=== PATIENT | female | born 1935 | race Caucasian/White ===

== ENCOUNTER 2017-08-06 21:57 | Emergency (ER) | payer MEDICARE, OTHER ==
[2017-08-06] MEDS: cloNIDine HCL 0.2 MG TAB PO (22:20)
== END 2017-08-06 23:53 | disposition home or self-care (01) ==
LOC: PHED 21:57
DX: I10 Essential (primary) hypertension (principal); R51 Headache; Z88.2 Allergy status to sulfonamides
CPT/HCPCS: 99283

== ENCOUNTER 2017-11-12 10:21 | Inpatient (IN) ==
[2017-11-12] MEDS ORDERED: Heparin 10,000 UNITS/10 ML Vial (for IV use) IV.PUSH STA (10:53)
--- NOTE | 2017-11-12 10:59 | ED ---
HPI General Chief complaint: Chest Pain Stated complaint: Chest pain x last night Time Seen by Provider: 11/12/17 10:52 Source: patient Mode of arrival: ambulatory Limitations: no limitations History of Present Illness HPI narrative: 82yo F with PMH of HTN presents to the ED with c/o chest pain that started at 9am today. Had some last night but worst today. Pain is achy and initially radiating to bilateral arms but now is going straight to her back from midsternal region. She already took aspirin. Related Data Home Medications Medication Instructions Recorded Confirmed amlodipine 10 mg PO DAILY 11/12/17 11/12/17 losartan-hydrochlorothiazide 1 tab PO DAILY 11/12/17 11/12/17 Allergies Allergy/AdvReac Type Severity Reaction Status Date / Time Sulfa (Sulfonamide Allergy Severe RASH Verified 08/06/17 22:03 Antibiotics) Review of Systems ROS: all other systems reviewed are negative [facility] Medical History Medical History Hypertension (Acute) Surgical History Surgical History No history of previous surgery (Acute) Social History Social History Substance History: No History of Abuse Second Hand Smoke Exposure: No Smoking Status: Never smoker How Often Do You Have a Drink Containing Alcohol: Monthly or less Recent Travel in [facility] within the Last 8 Weeks: No Recent Out of Country Travel within the Last 8 Weeks: No Exam Narrative Exam Narrative: GENERAL: 82yo F in moderate distress. SKIN: Focused skin assessment warm/dry. HEAD: Atraumatic. Normocephalic. EYES: Pupils equal and round. No scleral icterus. No injection or drainage. ENT: No nasal bleeding or discharge. Mucous membranes pink and moist. NECK: Trachea midline. No JVD. CARDIOVASCULAR: Regular rate and rhythm. No murmur appreciated. RESPIRATORY: No accessory muscle use. Clear to auscultation. Breath sounds equal bilaterally. GASTROINTESTINAL: Abdomen soft, non-tender, nondistended. MUSCULOSKELETAL: No obvious deformities. No clubbing. No cyanosis. No edema. NEUROLOGICAL: Awake and alert. No obvious cranial nerve deficits. Motor grossly within normal limits. Normal speech. PSYCHIATRIC: Appropriate mood and affect; insight and judgment normal. Course Initial Documented Vital Signs Temperature 97.5 F L 11/12/17 10:29 Pulse Rate 108 H 11/12/17 10:29 Respiratory Rate 20 11/12/17 10:29 Blood Pressure 180/86 H 11/12/17 10:29 Pulse Oximetry 99 11/12/17 10:29 Last Documented Vital Signs Temperature 97.5 F L 11/12/17 10:29 Pulse Rate 106 H 11/12/17 11:00 Respiratory Rate 18 11/12/17 11:00 Blood Pressure 84/45 L 11/12/17 11:00 Pulse Oximetry 95 11/12/17 11:00 Critical Care Time Critical Care Time: Yes Total Critical Care Time: 35 Attestation: Aggregate critical care time was 35 minutes. Time to perform other separately billable procedures was not included in the critical care time. My time did not include minutes spent treating any other patients simultaneously or on activities that did not directly contribute to the patient's treatment. The services I provided to this patient were to treat and/or prevent clinically significant deterioration that could result in: cardiovascular collapse or . I provided critical care services requiring my management, as noted below: Chart data review, documentation time, medication orders and management, vital sign assessments/reviewing monitor data, ordering and reviewing lab tests, ordering and interpreting/reviewing x-rays and diagnostic studies, care of the patient and discussion of the patient with the admitting physicians. Medical Decision Making MDM Narrative Medical decision making narrative: 82yo F with HTN here with midsternal chest pain since 9am. EKG showed ST elevation in V1 and V2 with diffuse ST depression. The elevation is only about 1mm but is horizontal with diffuse ST depression so it is worrisome and I discussed with road supervisor Dr. Pedraza and he said he would call a STEMI and STEMI was called. Pt given heparin and 1 sublingual nitro which relieved her chest pain. Labs reviewed, no leukocytosis. H/H normal. BMP unremarkable. Troponin elevated at 1.11. CXR showed some scarring of left base. Normal heart size. 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 Differential Diagnosis Differential Diagnosis: STEMI vs. nonstemi Lab Data Result diagrams: 11/12/17 10:51 11/12/17 10:51 Lab Results 11/12/17 11/12/17 11/12/17 Range/Units 10:51 10:51 10:51 CBC w Diff Auto diff final WBC 6.3 (4.0-11.0) th/mm3 RBC 4.38 (4.00-5.30) mil/mm3 Hgb 14.0 (11.6-15.3) gm/dL Hct 41.8 (35.0-46.0) % MCV 95.4 (80.0-100.0) fL MCH 32.0 (27.0-34.0) pg MCHC 33.6 (32.0-36.0) % RDW 12.9 (11.6-17.2) % Plt Count 178 (150-450) th/mm3 MPV 8.1 (7.0-11.0) fL Neut % (Auto) 55.1 (16.0-70.0) % Lymph % (Auto) 33.1 (9.0-44.0) % Mckenzie % (Auto) 9.0 H (0.0-8.0) % Eos % (Auto) 1.6 (0.0-4.0) % Baso % (Auto) 1.2 (0.0-2.0) % Neut # (Auto) 3.4 (1.8-7.7) th/mm3 Lymph # (Auto) 2.1 (1.0-4.8) th/mm3 Mckenzie # (Auto) 0.6 (0.0-0.9) th/mm3 Eos # (Auto) 0.1 (0.0-0.4) th/mm3 Baso # (Auto) 0.1 (0.0-0.2) th/mm3 WBC Differential . Differential Comment . PT 10.1 (9.8-11.6) sec INR 1.0 Ratio APTT 24.9 (24.3-30.1) sec Sodium 140 (136-145) meq/L Potassium 3.7 (3.5-5.1) meq/L Chloride 105 (98-107) meq/L Carbon Dioxide 27.0 (21.0-32.0) meq/L Anion Gap 8 (5-15) meq/L BUN 18 (7-18) mg/dL Creatinine 0.93 (0.50-1.00) mg/dL Estimated GFR 58 L (>89) mL/min Random Glucose 113 H (74-106) mg/dL Calcium 9.4 (8.5-10.1) mg/dL Magnesium 1.8 (1.5-2.5) mg/dL Total Creatine Kinase 84 (26-192) U/L Troponin I 1.11 H* (0.02-0.05) ng/mL Blood Type Antibody Screen 11/12/17 Range/Units 11:58 CBC w Diff WBC (4.0-11.0) th/mm3 RBC (4.00-5.30) mil/mm3 Hgb (11.6-15.3) gm/dL Hct (35.0-46.0) % MCV (80.0-100.0) fL MCH (27.0-34.0) pg MCHC (32.0-36.0) % RDW (11.6-17.2) % Plt Count (150-450) th/mm3 MPV (7.0-11.0) fL Neut % (Auto) (16.0-70.0) % Lymph % (Auto) (9.0-44.0) % Mckenzie % (Auto) (0.0-8.0) % Eos % (Auto) (0.0-4.0) % Baso % (Auto) (0.0-2.0) % Neut # (Auto) (1.8-7.7) th/mm3 Lymph # (Auto) (1.0-4.8) th/mm3 Mckenzie # (Auto) (0.0-0.9) th/mm3 Eos # (Auto) (0.0-0.4) th/mm3 Baso # (Auto) (0.0-0.2) th/mm3 WBC Differential Differential Comment PT (9.8-11.6) sec INR Ratio APTT (24.3-30.1) sec Sodium (136-145) meq/L Potassium (3.5-5.1) meq/L Chloride (98-107) meq/L Carbon Dioxide (21.0-32.0) meq/L Anion Gap (5-15) meq/L BUN (7-18) mg/dL Creatinine (0.50-1.00) mg/dL Estimated GFR (>89) mL/min Random Glucose (74-106) mg/dL Calcium (8.5-10.1) mg/dL Magnesium (1.5-2.5) mg/dL Total Creatine Kinase (26-192) U/L Troponin I (0.02-0.05) ng/mL Blood Type O Positive Antibody Screen Negative Imaging Data Radiologist's impression: Chest X-Ray 11/12/17 10:54 CONCLUSION: 1. [Except for some minimal lateral atelectasis or scarring in the left base, lungs are clear. 2. Heart size is normal. ECG Data EKG Prior to Arrival: No Attestation: I personally reviewed and interpreted this ECG as follows: Interpretation: Sinus tachycardia at 106bpm. LAD. ST elevation in V1, V2, aVR. Diffuse ST depression. Discharge Plan Discharge Disposition Patient Disposition: 30 Still Patient Discharge Details Diagnosis: ST elevation myocardial infarction (STEMI) Physicians Team ED Provider: Heavenly Rowe Primary Care Provider: Rafaela Page Attending Provider: Rahul Pedraza Other Providers: Yovani Klein Status ED Status: Discharged Discharge Information Discharge Date/Time: 11/12/17 11:13
[2017-11-12] MEDS ORDERED: Sod Chloride 0.9% Inj 1,000 ML IV.SIG SCH (11:00)
--- NOTE | 2017-11-12 11:11 | XR ---
EXAM DATE: 11/12/2017 11:05 AM EDT AGE/SEX: 82 years / Female INDICATIONS: Stemi alert. CLINICAL DATA: This is the patient's initial encounter. Patient reports that signs and symptoms have been present for 1 day and indicates a pain score of 6/10. MEDICAL/SURGICAL HISTORY: Hypertension. . COMPARISON: No prior exams available for comparison. FINDINGS: A single AP view of the chest demonstrates mild elevation of the right hemidiaphragm. Minimal atelect asis/scarring laterally in the left base. Lungs are otherwise clear. Heart size is normal. Some degen erative spurring of the dorsal spine. Osseous structures are otherwise intact. CONCLUSION: 1. [Except for some minimal lateral atelectasis or scarring in the left base, lungs are clear. 2. Heart size is normal. Electronically signed by: Rajesh Alvarez MD 11/12/2017 11:09 AM EDT
[2017-11-12 11:12] LABS: Baso # (Auto) 0.1 th/mm3 (0.0-0.2); Baso % (Auto) 1.2 % (0.0-2.0); Eos # (Auto) 0.1 th/mm3 (0.0-0.4); Eos % (Auto) 1.6 % (0.0-4.0); Hematocrit 41.8 % (35.0-46.0); Lymph # (Auto) 2.1 th/mm3 (1.0-4.8); Lymph % (Auto) 33.1 % (9.0-44.0); Mean Corpuscular HGB Conc 33.6 % (32.0-36.0); Mean Corpuscular Volume 95.4 fL (80.0-100.0); Mean Platelet Volume 8.1 fL (7.0-11.0); Mono # (Auto) 0.6 th/mm3 (0.0-0.9); Neut # (Auto) 3.4 th/mm3 (1.8-7.7); Neut % (Auto) 55.1 % (16.0-70.0); Platelet Count 178 th/mm3 (150-450); Red Blood Count 4.38 mil/mm3 (4.00-5.30); Red Cell Distribution Width 12.9 % (11.6-17.2); White Blood Count 6.3 th/mm3 (4.0-11.0)
[2017-11-12 11:20] LABS: Potassium 3.7 meq/L (3.5-5.1)
[2017-11-12 11:22] LABS: Calcium 9.4 mg/dL (8.5-10.1)
[2017-11-12 11:23] LABS: Magnesium 1.8 mg/dL (1.5-2.5)
[2017-11-12 11:24] LABS: Activated Partial Thrombo Time 24.9 sec (24.3-30.1); Prothrombin Time 10.1 sec (9.8-11.6)
[2017-11-12] MEDS ORDERED: Heparin/NS PF Inj 1,000 ML ONE (11:35)
[2017-11-12] MEDS ORDERED: fentaNYL Citrate Inj 100 MCG/2 ML Ampul ONE (11:35)
[2017-11-12] MEDS ORDERED: Heparin 10,000 UNITS/10 ML Vial (for IV use) ONE (11:36)
[2017-11-12 11:41] LABS: Troponin I 1.11 ng/mL (0.02-0.05)
--- NOTE | 2017-11-12 12:41 | ECG ---
Date Performed: 11/12/2017 Time Performed: 10:34:10 PTAGE: 82 years EKG: SINUS TACHYCARDIA PATTERN CONSISTENT WITH PULMONARY DISEASE INCOMPLETE RIGHT BUNDLE BRANCH BLOCK LEFT ANTERIOR FASCICULAR BLOCK SEPTAL MYOCARDIAL INFARCTION POSSIBLE ACUTE SC NO PREVIOUS TRACING DOCTOR: Olvin Ponce Interpretating Date/Time 11/12/2017 12:39:24
--- NOTE | 2017-11-12 12:51 | CATHPROC ---
[place] HIS Report Study Information Study Number Admission Scheduled Start Study Start [id number] Nov 12 2017 10:21AM 11/12/2017 Nov 12 2017 11:14AM [place] Service Cath Endovascular Study Admit Source Facility Department Emergency department [facility] Assistant Physician and Clinical Staff Initial Amadeo Dhaliwal Technical Developer Tamie Dunbar RN Technical Developer Edda Smart RN Other cathlab, cathlab Recorder Jesika Chavez,RT(R) TECH2 Scrub Freya Ray,FISHER TECH2 X-Ray Juan Antonio Dahl,RT(R) Procedures Performed Procedure Location (Site) Vessel Name Coronary Angiograms LCA Left Coronary Coronary Angiograms RCA Right Coronary Coronary Angiograms LAD Prox Left Coronary Drug Eluting Inflatio LAD Prox Left Coronary L Heart Cath PTCA LAD Prox Left Coronary PTCA ADD ON'S Wire insertion Fem Art (right) Femoral Art Equipment Time Automatic Screwmaker Description Size Mfg Part Number Used/Scraped WIRE, BALANCE MIDDLEWEIGHT [id number] 12:11 [employer] 190CM Used 190CM (LUIS ENRIQUE) *[id number] TRANSDUCER, TRUWAVE [id number] 11:15 GARCIA HUANG * Used W/STOCKCOCK *[id number] INTRODUCER SET, [id number] 11:56 [employer] FR 5 Used MICROPUNCTURE *[id number] *[id number] [id number] *[id number] 11:15 Speak With Me BLANKET,WARM AIR CCL * Used *[id number] 11:15 Speak With Me PACK, CCL CUSTOM * Used *[id number] 11:15 Speak With Me SUPPORT, ARTERIAL ADULT [id number] *[id number] Used [id number] 12:10 [employer] BALLOON, 3.0 X 10MM EUPHORA 10MM Used *[id number] BALLOON, 3.0 X 8MM NC [id number] 12:21 [employer] 8MM Used EUPHORA *[id number] 12:19 [employer] STENT, 3.0 12MM RENE 3.0 12MM Used *[id number] 12:07 [employer]IC/AVE EBU 3.5 Z2 GUIDE CATHETER FR 6 Used *[id number] 11:27 [employer]ets 30 DARLENE INDEFLATOR Used *[id number] 11:15 [employer] WIRE, EXCHANGE 260CM 3MMJ 260CM Used *[id number] 11:15 NAMIC MANIFOLD, 4 PORT * Used *[id number] 11:15 NYCOMED OMNIPAQUE, 350 MG, 150ML 150ML [id number] Used [id number] 11:56 [employer] SHEATH, FR5 TERUMO (10CM) FR 5 Used *[id number] SHEATH, FR6 TRANSRADIAL [id number] 11:15 TERUMO MEDICAL FR 6 Used SLENDER 10CM *[id number] Equipment Model, Serial, Lot Number and Expiration Data Description Model Number Serial Number Lot Number Expiration Date BALLOON, 3.0 X 10MM EUPHORA [id number] 01-24-2018 STENT, 3.0 12MM RENE [id number] 06-06-2019 History: Current Medications Medication Dosage/Unit Route Frequency Last Date/Time Taken ASA HEPARIN NTG SL History: Allergies Allergy Reaction Sulfa History: Risk Factors Hypertension Yes History: Symptoms/Diagnosis Selection Items Chest pain History: Other Current Smoker No Labs Hgb (g/dl) RBC (MIL/MM3) WBC (l/cumm) Platelets (thousands) 11.60-17.00 4.00-5.90 4.00-11.00 150.00-450.00 14.0 4.3 6.3 178 Glucose (mg/dl) BUN (mg/dl) 74.00-106.00 7.00-18.00 113 18 Medication Medication Total Dose (Bolus/Oral) Medication Total Dosage/Unit 1% XYLOCAINE 20 mL BRILLINTA 180 mg FENTANYL 25 mcg HEPARIN 4500 units NTG (IC) 200 mcg VERSED 0.5 mg Medications (Bolus/Oral) Medication Time Given Dosage/Unit Administered By Reason VERSED 11/12/2017 11:54:30 AM 0.5 mg Tamie Dunbar 0.5 mg VERSED given in lab by Tamie Dunbar, VIVI via Peripheral IV. Ordered by Amadeo Rivero FENTANYL 11/12/2017 11:55:28 AM 25 mcg Tamie Dunbar 25 mcg FENTANYL given in lab by Tamie Dunbar, RN in Left Antecubital via Peripheral IV. Ordered b y Amadeo Rivero 1% XYLOCAINE 11/12/2017 11:55:46 AM 20 mL Amadeo Rivero 20 mL 1% XYLOCAINE given in lab by Amadeo Rivero in Right Groin via Subcutaneous. HEPARIN 11/12/2017 12:05:41 PM 4500 units Edda Smart 4500 units HEPARIN given in lab by Edda Smart, RN in Left Antecubital via Peripheral IV. NTG (IC) 11/12/2017 12:23:21 PM 200 mcg Amadeo Rivero 200 mcg NTG (IC) given in lab by Amadeo Rivero via Intra-coronary. LCA BRILLINTA 11/12/2017 12:30:16 PM 180 mg Tamie Dunbar 180 mg BRILLINTA given in lab by Tamie Dunbar, VIVI in Per mouth via Oral. Ordered by Demian Rivero. Medication (Drip) Medication Time Given Dosage/Unit Concentration/Unit Diluent (ml) Solution IV Solutions 11/12/2017 11:49:33 AM 0 mL (IV) 1000 NaCl .9 Patient arrived on IV Solutions given by tegan cathóscar in Left Antecubital via Peripheral IV. Pump /Drip Flow = 20 ml/hr using NaCl .9. Initial Case Assessment Cardiovascular HR Rhythm NIBP Chest Pain 65 sr 143/78 0 Edema Present Skin color Skin None Normal Warm Dry Circulatory - Right Pulses Dorsalis Pedis Femoral 2 2 Scale (0,1,2,3,4,d) Circulatory - Left Pulses Dorsalis Pedis Femoral 2 2 Scale (0,1,2,3,4,d) Neurological State Oriented to time-place- Alert Moves all extremities person Respiration - General Respiration Rate SpO2 (%) (B/min) 18 98 Final Case Assessment Cardiovascular HR NIBP Chest Pain 74 117/61 0 Edema Present Skin color Skin None Normal Warm Dry Circulatory - Right Pulses Dorsalis Pedis Femoral 2 2 Scale (0,1,2,3,4,d) Circulatory - Left Pulses Dorsalis Pedis Femoral 2 2 Scale (0,1,2,3,4,d) Circulatory - Lower Extremities Color Lower Right Color Lower Left Normal Normal Neurological State Alert Respiration - General Respiration Rate SpO2 (%) O2 (lpm) (B/min) 16 96 2 Chronological Log Time Study Chronological Log 11:33:[address] from [facility] ED. 11:34:25 MD arrived. 11:40:34 Patient arrived via Bed. Vitals capture started with the following parameters, Patient=Adult, Interval=5 min, Initial Pr lvmtve=533 mmHg, 11:46:52 Deflation Rate=5 mmHg 11:47:58 HR=75 bpm, XBSY=189/78 mmhg, SpO2=98.0 %, Resp=18 B/min, Pain=0, Jeff=10, Kuhn=2 11:48:44 Patient Name, D.O.B, / Armband Verified By R.N. 11:48:47 Pre-op and post- op instructions given; patient acknowledges understanding of instructions. 11:48:49 Presedation assessment performed by Home Care Assistant RN. 11:48:57 Patient has been NPO for More than 6Hrs. 11:48:58 Skin Breakdown-none per patient 11:49:13 Patient Warmer Placed on the Table. 11:49:16 Disposable Defibrillator Pads Placed On Patient. 11:49:16 [employer] Prominences Protected 11:49:20 A # 20 IV was noted in the Antecubital (left). Grade = 0 Patient arrived on IV Solutions given by cathlab, cathlab in Left Antecubital via Peripheral IV . Pump/Drip Flow = 20 11:49:33 ml/hr using NaCl .9. 11:49:54 History and physical on the chart or being dictated. Assessment: Initial Case, HR=65 BPM, Rhythm=sr, TGCP=401/78 mmhg, Chest Pain=0, Edema=None, Col or=Normal, Skin = Warm, Dry Right Pulses: Cristobal Ped=2, Femoral=2 11:49:56 Left Pulses: Cristobal Ped=2, Femoral=2 Neurological: State=Alert, Ox3, GRANADOS Respiration: Resp=18 B/min, SpO2=98 % 11:50:47 Bilateral groins prepped with 2% chlorhexidine, and draped after a 3 minute waiting time. 11:52:05 Pressure channel 1 zeroed. 11:52:29 HR=89 bpm, UCHB=002/74 mmhg, SpO2=99.0 %, Resp=20 B/min, Pain=0, Jeff=10, Kuhn=2 Time Out. Correct patient, correct procedure, correct physician, labs, allergies, and equipment verified with medical laboratory technician 11:53:51 team present. Fire risk assesment completed (see hard stop sheet for coding). Time Out Conc urred by and individual staff in procedure. 11:54:21 Case Start 11:54:30 0.5 mg VERSED given in lab by Tamie Dunbar, VIVI via Peripheral IV. Ordered by Amadeo Rivero 25 mcg FENTANYL given in lab by Tamie Dunbar, RN in Left Antecubital via Peripheral IV. Ord ered by Mat, 11:55:28 Amadeo Salciod 11:55:41 Reference ECG taken 11::46 20 mL 1% XYLOCAINE given in lab by Amadeo Rivero in Right Groin via Subcutaneous. 11:56:00 Access site was Right Femoral Artery. Obtained with the assistance of the micropuncture kit 11:56:38 A SHEATH, FR5 TERUMO (10CM) FR 5 was advanced into the Fem Art (right) using the Percutaneo us technique. 11:57:30 HR=92 bpm, TVZS=683/70 mmhg, SpO2=98.0 %, Resp=19 B/min, Pain=0, Jeff=10, Kuhn=2 A JR 4.0 INFINITI CATHETER FR 5 was advanced over a wire. OMNIPAQUE, 350 MG, 150ML 150ML was us ed for 11:58:12 injections. 11:58:58 An injection in the Fem Art (right) was made through the SHEATH, FR5 TERUMO (10CM) FR 5. Recorded Pressure: LV, HR=90, Condition=Condition 1 12:00:22 (Left Ventricle) LV 129/-1/17 Recorded Pressure: LV, Ao, HR=91, Condition=Condition 1 12:00:34 (Left Ventricle) LV 130/-2/21, (Aorta) Ao 117/53/84 12:01:25 Lab sample sent down 12:01:51 The RCA was injected and visualized at various angles. OMNIPAQUE, 350 MG, 150ML 150ML used . 12:01:57 Catheter was removed A JL 3.5 INFINITI CATHETER FR 5 was advanced over a wire. OMNIPAQUE, 350 MG, 150ML 150ML was us ed for ::58 injections. 12:03:04 HR=86 bpm, YWXR=364/69 mmhg, SpO2=99.0 %, Resp=18 B/min, Pain=0, Jeff=10, Kuhn=2 12:04:32 The LCA was injected and visualized at various angles. OMNIPAQUE, 350 MG, 150ML 150ML used . 12:04:40 Catheter was removed 12:05:41 4500 units HEPARIN given in lab by Edda Smart, RN in Left Antecubital via Peripheral I V. A SHEATH, FR6 TRANSRADIAL SLENDER 10CM FR 6 was exchanged in the Fem Art (right). This was nece ssary in 12:07:03 order to accomodate a larger catheter. 12:07:21 OMNIPAQUE, 350 MG, 150ML 150ML and 30 DARLENE INDEFLATOR added. 12:07:55 HR=95 bpm, YECO=180/72 mmhg, SpO2=98.0 %, Resp=17 B/min, Pain=0, Jeff=10, Kuhn=2 A EBU 3.5 Z2 GUIDE CATHETER FR 6 was advanced over a wire. OMNIPAQUE, 350 MG, 150ML 150ML was u sed for 12:08:17 injections. 12:10:22 A WIRE, BALANCE MIDDLEWEIGHT 190CM (LUIS ENRIQUE) 190CM was inserted via Fem Art (right). 12:11:10 Activated Clotting Time Drawn 12:12:29 HR=90 bpm, TPAJ=808/71 mmhg, SpO2=98.0 %, Resp=19 B/min, Pain=0, Jeff=10, Kuhn=2 12:12:53 Interventional wire has crossed the lesion A BALLOON, 3.0 X 10MM EUPHORA 10MM was inserted over WIRE, BALANCE MIDDLEWEIGHT 190CM (LUIS ENRIQUE) 19 0CM 12:12:59 via the LAD Prox. A BALLOON, 3.0 X 10MM EUPHORA 10MM over a WIRE, BALANCE MIDDLEWEIGHT 190CM (LUIS ENRIQUE) 190CM in the LAD 12:14:34 Prox was inflated using a 30 DARLENE INDEFLATOR at 10 darlene for 15 sec. 12:15:48 Balloon Removed. 12:16:07 juan antonio relieved jesika 12:17:21 ACT (Normal Range 90-180) = 325 12:17:30 HR=93 bpm, IPCG=238/69 mmhg, SpO2=98.0 %, Resp=20 B/min A implantable was advanced through a EBU 3.5 Z2 GUIDE CATHETER FR 6 over a WIRE, BALANCE MIDDLE WEIGHT 12:18:20 190CM (LUIS ENRIQUE) 190CM. A STENT, 3.0 12MM RENE 3.0 12MM was deployed using a 30 DARLENE INDEFLATOR at 12 atmospheres for 30 seconds in 12:18:56 the LAD Prox. 12:19:51 The LAD Prox was injected and visualized at various angles. OMNIPAQUE, 350 MG, 150ML 150ML used. A BALLOON, 3.0 X 8MM NC EUPHORA 8MM was inserted over WIRE, BALANCE MIDDLEWEIGHT 190CM (LUIS ENRIQUE) 1 90CM 12:21:03 via the LAD Prox. A BALLOON, 3.0 X 8MM NC EUPHORA 8MM over a WIRE, BALANCE MIDDLEWEIGHT 190CM (LUIS ENRIQUE) 190CM in the LAD 12:21:37 Prox was inflated using a 30 DARLENE INDEFLATOR at 14 darlene for 12 sec. A BALLOON, 3.0 X 8MM NC EUPHORA 8MM over a WIRE, BALANCE MIDDLEWEIGHT 190CM (LUIS ENRIQUE) 190CM in the LAD 12:22:15 Prox was inflated using a 30 DARLENE INDEFLATOR at 16 darlene for 10 sec. 12:22:29 HR=94 bpm, GYGX=924/76 mmhg, SpO2=98.0 %, Resp=18 B/min 12:22:36 Balloon Removed. 12:23:21 200 mcg NTG (IC) given in lab by Amadeo Rivero via Intra-coronary. LCA 12:24:03 The LCA was injected and visualized at various angles. OMNIPAQUE, 350 MG, 150ML 150ML used . 12:26:24 Wire removed 12:27:09 A WIRE, EXCHANGE 260CM 3MMJ 260CM was inserted via Fem Art (right). 12:27:17 Wire and catheter removed 12:27:34 HR=97 bpm, OTMY=514/61 mmhg, SpO2=96.0 %, Resp=18 B/min Assessment: Final Case, HR=74 BPM, URBX=113/61 mmhg, Chest Pain=0, Edema=None, Color=Normal, Sk in = Warm, Dry Right Pulses: Cristobal Ped=2, Femoral=2 Left Pulses: Cristobal Ped=2, Femoral=2 12:29:29 Lower Right Extremities: Color=Normal Lower Left Extremities: Color=Normal Neurological: State=Alert Respiration: Resp=16 B/min, SpO2=96 %, O2=2 lpm 12:29:36 Case End (Physician broke scrub) 12:29:43 Vitals capture stopped. 12:30:16 180 mg BRILLINTA given in lab by Tamie Dunbar, VIVI in Per mouth via Oral. Ordered by Amadeo Galvez Bedside Report will be given. We were told by [facility]) room still being cleaned.. We are waiti ng for a phone call to 12:30:50 [facility] bed. Vitals capture started with the following parameters, Patient=Adult, Interval=5 min, Initial Pr ymnfda=280 mmHg, 12:38:37 Deflation Rate=5 mmHg 12:38:59 Sterile dressing applied to site 12:39:01 No case complications noted. 12:39:09 HR=74 bpm, JZDQ=973/73 mmhg, SpO2=98.0 % 12:40:07 Implantable Device card placed in patient's chart. 12:40:10 Defibrillator and ground pads removed. Skin intact. 12:40:16 A Left Heart Cath was performed. 12:46:10 bed arrived 12:47:13 Patient moved to [facility] End Study - Contrast Media Used In Study Contrast Total Opened (mL) Total Used (mL) Total Wasted (mL) Omnipaque 85 85 0 End Study - Radiation Exposure Fluoro Time (minutes) 5.0 End Study - Patient Disposition Complications Transferred To Interventional Outcome No Critical Care Bed successful
[2017-11-12] MEDS ORDERED: oxyCODONE/Acetaminophen 10/325 Tablet PO PRN (13:20)
[2017-11-12] MEDS ORDERED: Acetaminophen 325 MG Tablet PO PRN (13:20)
[2017-11-12] MEDS ORDERED: Morphine Inj 4 MG/ML Vial IV.PUSH PRN (13:20)
[2017-11-12] MEDS ORDERED: Misc Info for Pharmacy OTHER STA (13:20)
--- NOTE | 2017-11-12 13:38 | MH ---
cc: RiveroAmadeo grimm Tonya CHAVEZ DATE OF ADMISSION: 11/12/2017 CHIEF COMPLAINT: Chest pain. HISTORY OF CHIEF COMPLAINT: Umu Dickson is a pleasant 82-year-old female who presented to [facility] Emergency Room in [place] due to chest pain. She states that she had some last night, but it went away. This morning starting around 9 a.m., she started getting achy pain across her chest and down her bilateral arms. Because of this, she went to the Emergency Room. On arrival to the Emergency Room, she was found to have an EKG with ST elevations anteriorly, probably not fully qualifying for a STEMI, but obviously had significant EKG changes as well as chest pain concerning for coronary insufficiency and so Dr. Pedraza was called. Unfortunately, there were 2 emergent patients at this time, including her and so I was asked to help out, but obviously concerning enough as well as her coronary insufficiency for a significant lesion. ER called Dr. Pedraza who was registration coordinator and he asked that a STEMI alert be called due to the significance of EKG changes as well as her pain. On arrival to the lab director, she is still having some pain, but it is down to 2/10 at this time. PAST MEDICAL HISTORY: Hypertension. PAST SURGICAL HISTORY: Denies. ALLERGIES: SULFA. MEDICATIONS: 1. Losartan/hydrochlorothiazide 100/12.5 daily. 2. Norvasc 10 mg daily. FAMILY HISTORY: Denies premature coronary artery disease or sudden cardiac within the family. SOCIAL HISTORY: Denies tobacco, alcohol or drug abuse. REVIEW OF SYSTEMS: Fourteen systems were reviewed including osteopathic. Pertinent positives and negatives as above, otherwise negative. VITAL SIGNS: Temperature 97.5, heart rate 106, blood pressure 84/45, respirations 18, pulse oximetry 95% on 2 liters. GENERAL: The patient appears in mild distress, but alert, awake and oriented x3. HEENT: Extraocular muscles intact. Mucous membranes moist. NECK: Supple. No JVD at 45 degrees. No carotid bruits heard bilaterally. Carotid upstroke is brisk in nature. HEART: Regular rate and rhythm. Positive first and second heart sounds with a 1/6 crescendo decrescendo murmur, which is mid peaking, which goes to the right sternal border. LUNGS: Clear to auscultation bilaterally. No wheezes, rales or rhonchi. ABDOMEN: Soft, nontender, nondistended. No organomegaly noted. EXTREMITIES: Show no clubbing, cyanosis or edema. Femoral and distal pulses intact bilaterally. NEUROLOGIC: No focal deficits. SKIN: Warm, dry and intact. OSTEOPATHIC: No kyphoscoliosis, lordosis or paraspinal tender points. LABORATORY DATA: Hemoglobin 14.0, hematocrit 41.8, platelets 178. Potassium 3.7, BUN 18, creatinine 0.93. Troponin 1.11. Electrocardiogram (11/12/2017 at 10:34): Sinus tachycardia, incomplete right bundle branch block, left anterior fascicular block, ST elevations anteriorly, probable acute myocardial infarction. IMPRESSION: 1. Abnormal EKG with ST elevations anteroseptally concerning for an acute myocardial infarction. 2. ST elevation myocardial infarction/non-ST elevation myocardial infarction. 3. Presumed coronary artery disease. 4. Hypertension. RECOMMENDATIONS: 1. Ms. Dickson presented with chest pain concerning for coronary insufficiency and has an EKG that probably does not fit STEMI criteria, although with her chest pain and the changes, she should be taken emergently to the cardiac catheterization lab as there is a probable significant lesion of the left anterior descending. 2. Risks, benefits, and alternatives have been explained to her and she consents to such. 3. We will check a 2-D echo to look her overall left ventricular function, cardiac structure and possible valvulopathies. 4. Further recommendations will be made after coronary visualization. Thank you for allowing me to see Umu Dickson. If there are any questions, please do not hesitate to call. Amadeo Rivero, DO VGP/ct , 01:09 PM , 01:18 PM
--- NOTE | 2017-11-12 14:15 | MA ---
cc: Amadeo Rivero DO DATE: 11/12/2017 PROCEDURES: Left heart catheterization, coronary angiogram, moderate sedation 35 minutes, David drug-eluting stent (3 x 12) to proximal LAD. PREPROCEDURE DIAGNOSIS: EKG changes concerning for an acute ST segment elevation myocardial infarction, chest pain consistent with coronary insufficiency ([place] anginal class IV). POSTPROCEDURE DIAGNOSIS: Coronary artery disease, status post Winchester drug-eluting stent (3 x 12) to the proximal left anterior descending. MEDICATIONS: Fentanyl 25 mcg, fentanyl 25 mcg, Versed 0.5 mg, heparin 4500 units, nitro 200 mcg, Brilinta 180 mg. CONTRAST USED: 85 mL. FLUOROSCOPY: 5.0 minutes. MODERATE SEDATION: 35 minutes. FRAILTY SCORE: 4. ESTIMATED BLOOD LOSS: 10 mL. PROCEDURAL SUMMARY: Umu Dickson is a pleasant 82-year-old female who presented to [facility] Emergency Room in [place] due to chest pain. She was found to have ST elevations anteriorly, probable STEMI, but does not quite fit criteria. She also was having chest pain consistent with coronary insufficiency, and with the combination of the 2 it was felt that she should be taken to the optical laboratory manager emergently. Risks, benefits, and alternatives were explained to her and she consented as such. She was brought to the lab and prepped in the usual sterile fashion. The right femoral artery was accessed using a modified Seldinger technique and placement of a 5-Sammarinese sheath. This was easily aspirated and flushed. A JR4 was advanced over a J-wire to the ascending aorta and across the aortic valve for measurement of left ventricular pressure. This was pulled back across the aortic valve, showing no significant gradient of aortic stenosis. JR4 was used for selective angiography of the right coronary artery system. This is exchanged out for a JL3.5, which was used for selective angiography of the left coronary artery system. JL3.5 was removed over a J wire. Due to the significance of disease in the LAD, the 5-Sammarinese sheath was exchanged for a 6-Sammarinese sheath. The patient was given heparin as an anticoagulant. A BMW wire was advanced into the distal LAD. A Compliant balloon (3 x 10) was used to predilate the lesion. An David drug-eluting stent (3 x 12) was then placed over the lesion and inflated. A noncompliant balloon (3 x 8) was used to post-dilate the stent. Final angiogram shows a well-opposed stent with no perforations or dissections. The wire was removed. Guidewire was removed. Sheath was sutured in place with a plan to remove once ACT values were appropriate. The patient was loaded with 180 mg of Brilinta. She left the optical laboratory manager cardiovascularly stable. FINDINGS: LEFT MAIN: Normal-sized vessel with adequate reflux. 20% disease in the ostial portion. It trifurcates into an LAD, ramus, and circumflex. LAD: 99% high-risk stenosis in the proximal LAD. Distally, the vessel tapers down with mild luminal irregularities throughout the mid portion. It gives off 1 major diagonal, which has a 30% lesion in it. RAMUS: Moderate-sized vessel with no significant disease. Mid portion of it does appear to have possibly myocardial bridging. LEFT CIRCUMFLEX: Moderate-sized vessel with one large obtuse marginal, which has a 20-30% disease. RCA: Moderate-sized vessel with mild luminal irregularities throughout the proximal and mid portions. Distally, it supplies the PDA as well as the posterolateral branch, with no significant disease. LVEDP: 18. INTERVENTIONAL DATA: Lesion #1 proximal LAD, lesion length 8, pre-YESENIA 1, post-YESENIA 3, post-stenosis 0. IMPRESSION: 1. EKG changes concerning for an acute ST elevation myocardial infarction. 2. Chest pain concerning for coronary insufficiency. 3. Coronary artery disease as above, status post Winchester drug-eluting stent (3 x 12) to the proximal left anterior descending. 4. Hypertension. RECOMMENDATIONS: 1. Ms. Dickson underwent a PCI for a high-risk lesion as above. She will be recommended aspirin and Brilinta therapy. 2. We will add beta dashawn and statin therapy to her current regimen. She will continue on her losartan. We will see about continuing the actual losartan and hydrochlorothiazide, depending on kidney function as well as her overall blood pressure. 3. We will check a 2-D echo to look at her overall left ventricular function, cardiac structure, and possible valvulopathies. 4. Her sheath will be removed later today and pressure held for hemostasis. 5. She will most likely be in the hospital for 48 hours. Thank you for allowing me to see Umu Dickson. If there are any questions, please do not hesitate to call. DO SILVANA Clark/antonio , 01:20 PM , 01:33 PM
[2017-11-12] MEDS: Metoprolol Tartrate 25 MG Tablet PO SCH (20:35)
[2017-11-13 08:29] LABS: Baso % (Auto) 0.4 % (0.0-2.0); Eos # (Auto) 0.1 th/mm3 (0.0-0.4); Eos % (Auto) 1.6 % (0.0-4.0); Hematocrit 37.9 % (35.0-46.0); Hemoglobin 13.3 gm/dL (11.6-15.3); Lymph # (Auto) 1.4 th/mm3 (1.0-4.8); Lymph % (Auto) 21.8 % (9.0-44.0); Mean Corpuscular Hemoglobin 32.5 pg (27.0-34.0); Mean Corpuscular Volume 92.9 fL (80.0-100.0); Mean Platelet Volume 8.4 fL (7.0-11.0); Mono # (Auto) 0.6 th/mm3 (0.0-0.9); Mono % (Auto) 8.8 % (0.0-8.0); Neut # (Auto) 4.4 th/mm3 (1.8-7.7); Neut % (Auto) 67.4 % (16.0-70.0); Platelet Count 174 th/mm3 (150-450); Red Blood Count 4.08 mil/mm3 (4.00-5.30); Red Cell Distribution Width 13.8 % (11.6-17.2); White Blood Count 6.5 th/mm3 (4.0-11.0)
--- NOTE | 2017-11-13 08:39 | ECG ---
Date Performed: 11/13/2017 Time Performed: 05:41:34 PTAGE: 82 years EKG: Sinus rhythm Left anterior fascicular block Anterior T wave changes are nonspecific Borderline ECG PREVIOUS TRACING : 11/12/2017 10.34 Compared to previous tracing, QRS voltage has decreased dif fusely, QRS duration has decreased. DOCTOR: Rahul Pedraza Interpretating Date/Time 11/13/2017 08:37:26
[2017-11-13 09:00] LABS: Calcium 8.6 mg/dL (8.5-10.1); Carbon Dioxide 24.1 meq/L (21.0-32.0); Potassium 3.6 meq/L (3.5-5.1)
[2017-11-13] MEDS: Metoprolol Tartrate 25 MG Tablet PO SCH ×2 (09:22→21:16)
--- NOTE | 2017-11-13 16:05 | P.HPIM ---
History of Present Illness Primary Care Physician: Rafaela Page MD History of Present Illness: Pleasant 82-year-old female with hypertension who presented with dull constant chest pain starting around 9 AM yesterday, subsequently underwent cardiac catheterization with PCI. Patient reports that she is feeling fine currently. Warts the chest pain has resolved. Any shortness of breath. Denies any fevers , chills, nausea, vomiting, diarrhea, constipation. Says she feels like going home. Inpatient Certification: I certify that the inpatient services were ordered in accordance with Medicare regulations governing the order. This includes certification that hospital inpatient services are reasonable and necessary and in the case of services not specified as inpatient-only under 42 CFR 419.22(n), that they are appropriately provided as inpatient services in accordance to with the 2-midnight benchmark under 43 CFR 412.3(e) Estimated Total Length of Stay (Days): 2 Plans for Post Hospital Care: Home Review of Systems All other systems reviewed negative except as stated in [facility] - History History Provided By: Patient - Medical History Medical History: Medical History (Last Updated 11/12/17 @ 10:59 by Jennifer Conroy RN) Hypertension - Surgical History Surgical History: Surgical History (Last Updated 11/12/17 @ 10:59 by Jennifer Conroy RN) No history of previous surgery - Family History Family History: Family History (Last Updated 11/13/17 @ 16:01 by Yovani Klein MD) Mother CAD (coronary artery disease) Father Family estrangement - Tobacco History Second Hand Smoke Exposure: No Smoking Status: Never smoker - Alcohol History How Often Do You Have a Drink Containing Alcohol: Monthly or less - Substance Use History Substance History: No History of Abuse - Travel History Recent Travel in the [place] Within the Last 8 Weeks: No Recent Travel Out of the Country Within the Last 8 Weeks: No - Immunization History Tetanus Immunization: Unsure Hx Influenza Vaccine This Season: No Medications and Allergies Active Medications: Active Medications Acetaminophen (Tylenol) 325 mg PO Q4H PRN PRN Reason: PAIN SCALE 1 TO 2 Aspirin (Aspirin Chew) 81 mg PO DAILY [facility] Last Admin: 11/13/17 09:22 Dose: 81 mg Atorvastatin Calcium (Lipitor) 80 mg PO HS [facility] Last Admin: 11/12/17 20:35 Dose: 80 mg Metoprolol Tartrate (Lopressor) 12.5 mg PO BID [facility] Last Admin: 11/13/17 09:22 Dose: 12.5 mg Morphine Sulfate (Morphine Inj) 2 mg IV.PUSH Q30M PRN PRN Reason: BREAKTHROUGH PAIN Last Admin: 11/12/17 14:02 Dose: 2 mg Oxycodone/Acetaminophen (Percocet 10/325 Mg) 1 tab PO Q4H PRN PRN Reason: PAIN SCALE 6 TO 10 Oxycodone/Acetaminophen (Percocet 5/325 Mg) 1 tab PO Q4H PRN PRN Reason: PAIN SCALE 3 TO 5 Sodium Chloride (Ns Flush) 2 ml IV.FLUSH PRN PRN PRN Reason: FLUSH AFTER USING IV ACCESS Last Admin: 11/12/17 20:36 Dose: 2 ml Sodium Chloride (Ns Flush) 2 ml IV.FLUSH PRN PRN PRN Reason: FLUSH AFTER USING IV ACCESS Sodium Chloride (Ns Flush) 2 ml IV.FLUSH BID [facility] Last Admin: 11/13/17 09:22 Dose: 2 ml Ticagrelor (Brilinta) 90 mg PO BID [facility] Last Admin: 11/13/17 09:22 Dose: 90 mg Allergies Allergy/AdvReac Type Severity Reaction Status Date / Time Sulfa (Sulfonamide Allergy Severe RASH Verified 08/06/17 22:03 Antibiotics) Home Medications Medication Instructions Recorded Confirmed Type amlodipine 10 mg PO DAILY 11/12/17 11/12/17 History losartan-hydrochlorothiazide 1 tab PO DAILY 11/12/17 11/12/17 History Exam Vital signs: Vital Signs 11/12/17 16:00 11/12/17 17:00 11/12/17 18:00 Temperature Pulse Rate 98 H 86 81 Respiratory Rate Blood Pressure 132/75 110/58 L 110/61 Pulse Oximetry 11/12/17 19:00 11/12/17 20:00 11/12/17 21:00 Temperature 98.0 F Pulse Rate 81 80 88 Respiratory Rate 18 Blood Pressure 113/63 Pulse Oximetry 95 11/12/17 22:00 11/12/17 23:00 11/13/17 00:00 Temperature 98.2 F Pulse Rate 86 86 90 Respiratory Rate 14 Blood Pressure 117/66 Pulse Oximetry 97 11/13/17 01:00 11/13/17 02:00 11/13/17 03:00 Temperature 97.9 F Pulse Rate 72 72 78 Respiratory Rate 18 Blood Pressure 106/98 H Pulse Oximetry 97 11/13/17 04:00 11/13/17 05:00 11/13/17 06:00 Temperature Pulse Rate 70 78 78 Respiratory Rate Blood Pressure Pulse Oximetry 11/13/17 07:00 11/13/17 08:00 11/13/17 09:00 Temperature 97.6 F Pulse Rate 87 78 84 Respiratory Rate 20 Blood Pressure 108/58 L Pulse Oximetry 96 11/13/17 10:00 11/13/17 11:00 11/13/17 12:00 Temperature 98.4 F Pulse Rate 79 88 74 Respiratory Rate Blood Pressure 108/56 L Pulse Oximetry 96 11/13/17 13:00 11/13/17 13:08 11/13/17 14:00 Temperature Pulse Rate 78 77 Respiratory Rate Blood Pressure Pulse Oximetry 95 Intake & Output 11/12/17 11/13/17 11/13/17 18:59 06:59 18:59 Intake Total 200 / 200 240 / 240 Output Total 650 / 650 350 / 350 Balance -450 / -450 -110 / -110 Weight 70.4 kg 83.5 kg Intake: Oral 0 / 0 240 / 240 Anesthesia Amount 200 / 200 Output: Urine 650 / 650 350 / 350 Other: # Voids 3 Date of Last Bowel Movement 11/11/17 Narrative: GENERAL: Patient sitting up in chair. Appears comfortable. Alert and oriented 4. SKIN: Warm and dry. HEAD: Atraumatic. Normocephalic. EYES: Pupils equal and round. No scleral icterus. No injection or drainage. ENT: No nasal bleeding or discharge. Mucous membranes pink and moist. NECK: Trachea midline. No JVD. CARDIOVASCULAR: Regular rate and rhythm. RESPIRATORY: No accessory muscle use. Clear to auscultation. Breath sounds equal bilaterally. GASTROINTESTINAL: Abdomen soft, non-tender, nondistended. Hepatic and splenic margins not palpable. MUSCULOSKELETAL: Extremities without clubbing, cyanosis, or edema. No obvious deformities. NEUROLOGICAL: Awake and alert. No obvious cranial nerve deficits. Motor grossly within normal limits. Five out of 5 muscle strength in the arms and legs. Normal speech. PSYCHIATRIC: Appropriate mood and affect; insight and judgment normal. Results - Labs CBC & Chem 7: 11/13/17 07:56 11/13/17 07:56 Labs: Short CBC 11/13/17 Range/Units 07:56 WBC 6.5 (4.0-11.0) th/mm3 Hgb 13.3 (11.6-15.3) gm/dL Hct 37.9 (35.0-46.0) % Plt Count 174 (150-450) th/mm3 BMP 11/13/17 07:56 Sodium 142 Potassium 3.6 Chloride 110 H Carbon Dioxide 24.1 BUN 18 Creatinine 0.86 Calcium 8.6 D Caprini VTE Risk Assessment Caprini VTE Risk Assessment: Moderate/High Risk (score >= 2) Caprini Risk Assessment Model: Point Value = 1 Point Value = 2 Point Value = 3 Point Value = 5 Age 41-60 Minor surgery BMI > 25 kg/m2 Swollen legs Varicose veins or History of unexplained or recurrent spontaneous Oral contraceptives or hormone replacement Sepsis (< 1 month) Serious lung disease, including pneumonia (< 1 month) Abnormal pulmonary function Acute myocardial infarction Congestive heart failure (< 1 month) History of inflammatory bowel disease Medical patient at bed rest Age 61-74 Arthroscopic surgery Major open surgery (> 45 min) Laparoscopic surgery (> 45 min) Malignancy Confined to bed (> 72 hours) Immobilizing plaster cast Central venous access Age >= 75 History of VTE Family history of VTE Factor V Leiden Prothrombin [id number] Lupus anticoagulant Anticardiolipin antibodies Elevated serum homocysteine Heparin-induced thrombocytopenia Other congenital or acquired thrombophilia Stroke (< 1 month) Elective arthroplasty Hip, pelvis, or leg fracture Acute spinal cord injury (< 1 month) Prophylaxis Regimen: Total Risk Factor Score Risk Level Prophylaxis Regimen 0-1 Low Early ambulation 2 Moderate Order ONE of the following: *Sequential Compression Device (SCD) *Heparin 5000 units SQ BID 3-4 Higher Order ONE of the following medications: *Heparin 5000 units SQ TID *Enoxaparin/Lovenox 40 mg SQ daily (WT < 150 kg, CrCl > 30 mL/min) *Enoxaparin/Lovenox 30 mg SQ daily (WT < 150 kg, CrCl > 10-29 mL/min) *Enoxaparin/Lovenox 30 mg SQ BID (WT < 150 kg, CrCl > 30 mL/min) AND/OR *Sequential Compression Device (SCD) 5 or more Highest Order ONE of the following medications: *Heparin 5000 units SQ TID (Preferred with Epidurals) *Enoxaparin/Lovenox 40 mg SQ daily (WT < 150 kg, CrCl > 30 mL/min) *Enoxaparin/Lovenox 30 mg SQ daily (WT < 150 kg, CrCl > 10-29 mL/min) *Enoxaparin/Lovenox 30 mg SQ BID (WT < 150 kg, CrCl > 30 mL/min) AND *Sequential Compression Device (SCD) Assessment and Plan - Plan //ST elevation CT //Coronary artery disease = Status post stenting by cardiology. = Continue on metoprolol, aspirin, Lipitor, Brilinta. Awaiting echocardiogram. Cardiology following. Appreciate assistance. //Hypertension. Blood pressure is acceptable currently. Continue to monitor, And adjust medications as necessary. //DVT prophylaxis. SCDs. Discharge Planning: Home pending cardiology clearance.
--- NOTE | 2017-11-13 20:52 | P.PNCA ---
Subjective Interval history: No events overnight Feels well Up out of bed and walking Physical Exam Vital signs: Vital Signs 11/12/17 21:00 11/12/17 22:00 11/12/17 23:00 Temperature 98.2 F Pulse Rate 88 86 86 Respiratory Rate 14 Blood Pressure 117/66 Pulse Oximetry 97 11/13/17 00:00 11/13/17 01:00 11/13/17 02:00 Temperature Pulse Rate 90 72 72 Respiratory Rate Blood Pressure Pulse Oximetry 11/13/17 03:00 11/13/17 04:00 11/13/17 05:00 Temperature 97.9 F Pulse Rate 78 70 78 Respiratory Rate 18 Blood Pressure 106/98 H Pulse Oximetry 97 11/13/17 06:00 11/13/17 07:00 11/13/17 08:00 Temperature 97.6 F Pulse Rate 78 87 78 Respiratory Rate 20 Blood Pressure 108/58 L Pulse Oximetry 96 11/13/17 09:00 11/13/17 10:00 11/13/17 11:00 Temperature 98.4 F Pulse Rate 84 79 88 Respiratory Rate Blood Pressure 108/56 L Pulse Oximetry 96 11/13/17 12:00 11/13/17 13:00 11/13/17 13:08 Temperature Pulse Rate 74 78 Respiratory Rate Blood Pressure Pulse Oximetry 95 11/13/17 14:00 11/13/17 15:00 11/13/17 16:00 Temperature 98.0 F Pulse Rate 77 73 71 Respiratory Rate 18 Blood Pressure 106/46 L Pulse Oximetry 96 11/13/17 17:00 11/13/17 18:00 Temperature Pulse Rate 82 76 Respiratory Rate Blood Pressure Pulse Oximetry Intake & Output 11/13/17 11/13/17 11/14/17 06:59 18:59 06:59 Intake Total 240 / 240 1550 / 1550 Output Total 350 / 350 500 / 500 Balance -110 / -110 1050 / 1050 Weight 83.5 kg Intake: IV 1000 / 1000 NS Inj 1,000 ML @ 30 mls/hr IV. 1000 / 1000 SIG .Q24H ALTAGRACIA Rx#:[id number] Oral 240 / 240 550 / 550 Output: Urine 350 / 350 500 / 500 Other: Date of Last Bowel Movement 11/11/17 Narrative: GENERAL: NAD, AAOx3 SKIN: Warm and dry. HEAD: Atraumatic. Normocephalic. EYES: Pupils equal and round. No scleral icterus. No injection or drainage. ENT: No nasal bleeding or discharge. Mucous membranes pink and moist. NECK: Trachea midline. No JVD. CARDIOVASCULAR: Regular rate and rhythm. RESPIRATORY: No accessory muscle use. Clear to auscultation. Breath sounds equal bilaterally. GASTROINTESTINAL: Abdomen soft, non-tender, nondistended. Hepatic and splenic margins not palpable. MUSCULOSKELETAL: Extremities without clubbing, cyanosis, or edema. No obvious deformities. Right femoral no hematoma, mild ecchymosis, distal pulses intact NEUROLOGICAL: Awake and alert. No obvious cranial nerve deficits. Motor grossly within normal limits. Five out of 5 muscle strength in the arms and legs. Normal speech. PSYCHIATRIC: Appropriate mood and affect; insight and judgment normal. Assessment and Plan - Assessment (1) CAD (coronary artery disease) Code(s): I25.10 - Atherosclerotic heart disease of [place] coronary artery without angina pectoris Status: Acute (2) HTN (hypertension) Code(s): I10 - Essential (primary) hypertension Status: Acute (3) ST elevation myocardial infarction (STEMI) Code(s): I21.3 - ST elevation (STEMI) myocardial infarction of unspecified site Status: Acute - Plan 1) CAD/STEMI alert s/p ELVIS to LAD ASA/Brilinta/BB/Statin Will have to see about adding back Losartan at this time as blood pressure is borderline low Would hold HCTZ portion of it 2) HTN Stable Will see about adding back Losartan at this time as blood pressure is borderline low Hold Norvasc and HCTZ 3) 2D echo pending 4) Plan discharge tomorrow with follow up in the office (3) ST elevation myocardial infarction (STEMI) Qualifiers: Involved coronary artery: LAD coronary artery Qualified Code(s): I21.02 - ST elevation (STEMI) myocardial infarction involving left anterior descending coronary artery
[2017-11-14 04:30] VITALS: O2SAT 98
[2017-11-14] MEDS: Metoprolol Tartrate 25 MG Tablet PO SCH (08:59)
--- NOTE | 2017-11-14 09:45 | P.PNIM ---
Subjective Interval history: Patient says she is feeling all right. Denies any chest pain or shortness of breath. Denies nausea or vomiting. Physical Exam Vital signs: Vital Signs 11/13/17 10:00 11/13/17 11:00 11/13/17 12:00 Temperature 98.4 F Pulse Rate 79 88 74 Respiratory Rate Blood Pressure 108/56 L Pulse Oximetry 96 11/13/17 13:00 11/13/17 13:08 11/13/17 14:00 Temperature Pulse Rate 78 77 Respiratory Rate Blood Pressure Pulse Oximetry 95 11/13/17 15:00 11/13/17 16:00 11/13/17 17:00 Temperature 98.0 F Pulse Rate 73 71 82 Respiratory Rate 18 Blood Pressure 106/46 L Pulse Oximetry 96 11/13/17 18:00 11/13/17 19:00 11/13/17 20:00 Temperature 97.6 F Pulse Rate 76 74 76 Respiratory Rate 18 Blood Pressure 108/62 Pulse Oximetry 96 96 11/13/17 21:00 11/13/17 22:00 11/13/17 23:00 Temperature 99 F Pulse Rate 76 72 77 Respiratory Rate 14 Blood Pressure 103/49 L Pulse Oximetry 96 11/14/17 00:00 11/14/17 01:00 11/14/17 02:00 Temperature Pulse Rate 70 74 66 Respiratory Rate Blood Pressure Pulse Oximetry 11/14/17 03:00 11/14/17 04:00 11/14/17 05:00 Temperature 97.8 F Pulse Rate 81 72 72 Respiratory Rate 16 Blood Pressure 115/60 Pulse Oximetry 98 11/14/17 06:00 11/14/17 07:00 11/14/17 08:00 Temperature 98.2 F Pulse Rate 68 69 75 Respiratory Rate 18 Blood Pressure 104/55 L Pulse Oximetry 98 98 11/14/17 09:00 Temperature Pulse Rate 77 Respiratory Rate Blood Pressure Pulse Oximetry Intake & Output 11/13/17 11/14/17 11/14/17 18:59 06:59 18:59 Intake Total 1550 / 1550 240 / 240 Output Total 500 / 500 700 / 700 Balance 1050 / 1050 -460 / -460 Weight 84 kg Intake: IV 1000 / 1000 NS Inj 1,000 ML @ 30 mls/hr IV. 1000 / 1000 SIG .Q24H [facility] Rx#:[id number] Oral 550 / 550 240 / 240 Output: Urine 500 / 500 700 / 700 Other: Date of Last Bowel Movement 11/13/17 Narrative: GENERAL: Patient sitting up in bed. Appears comfortable. Alert and oriented 3. SKIN: Warm and dry. HEAD: Normocephalic. EYES: No scleral icterus. No injection or drainage. NECK: Supple, trachea midline. No JVD. CARDIOVASCULAR: Regular rate and rhythm without murmurs, gallops, or rubs. RESPIRATORY: Breath sounds equal bilaterally. No accessory muscle use. GASTROINTESTINAL: Abdomen soft, non-tender, nondistended. MUSCULOSKELETAL: No cyanosis, or edema. BACK: Nontender without obvious deformity. No CVA tenderness. Results - Labs CBC & Chem 7: 11/13/17 07:56 11/13/17 07:56 Assessment and Plan - Plan //ST elevation [place] //Coronary artery disease = Status post stenting by cardiology. = Continue on metoprolol, aspirin, Lipitor, Brilinta. Awaiting echocardiogram. Cardiology following. Appreciate assistance. = Blood pressure stable. Continue current medication regimen. Awaiting cardiology clearance. Awaiting echocardiogram. //Hypertension. Blood pressure is acceptable currently. Continue to monitor, And adjust medications as necessary. //DVT prophylaxis. SCDs. Discharge Planning: Home pending echocardiogram, cardiology clearance.
--- NOTE | 2017-11-14 09:52 | P.DS ---
Date of admission: 11/12/17 11:43 Primary care physician: Rafaela Page MD Brief History from admission: Pleasant 82-year-old female with hypertension who presented with dull constant chest pain starting around 9 AM yesterday, subsequently underwent cardiac catheterization with PCI. Patient reports that she is feeling fine currently. Warts the chest pain has resolved. Any shortness of breath. Denies any fevers , chills, nausea, vomiting, diarrhea, constipation. Says she feels like going home. DS: Medications - Discharge Medications Prescriptions: aspirin 81 mg PO DAILY #30 tab atorvastatin [Lipitor] 80 mg PO HS 30 Days #30 tab losartan 25 mg PO DAILY #30 tab metoprolol tartrate 12.5 mg PO BID #60 tab ticagrelor [Brilinta] 90 mg PO BID 30 Days #60 tab DS: Summary Hospital Course: Patient found to have ST elevation [place] on admission, and went for cardiac catheterization. Patient found to have high risk LAD lesion, which underwent PCI with drug-eluting stents 3. Echocardiogram performed and shows mild aortic valve regurgitation distal anteroseptal and apical hypokinesis, ejection fraction 45%. Please see report for other findings. Patient's chest pain resolved. For problem based summary from most recent progress note, please see below. ST elevation [place] //Coronary artery disease = Status post stenting by cardiology. = Continue on metoprolol, aspirin, Lipitor, Brilinta. Awaiting echocardiogram. Cardiology following. Appreciate assistance. = Blood pressure stable. Continue current medication regimen. Awaiting cardiology clearance. Awaiting echocardiogram. //Hypertension. Blood pressure is acceptable currently. Continue to monitor, And adjust medications as necessary. //DVT prophylaxis. SCDs. - Time Spent with Patient Total time spent providing and/or coordinating discharge services: Greater than 30 minutes Exam Vital signs: Vital Signs 11/13/17 10:00 11/13/17 11:00 11/13/17 12:00 Temperature 98.4 F Pulse Rate 79 88 74 Respiratory Rate Blood Pressure 108/56 L Pulse Oximetry 96 11/13/17 13:00 11/13/17 13:08 11/13/17 14:00 Temperature Pulse Rate 78 77 Respiratory Rate Blood Pressure Pulse Oximetry 95 11/13/17 15:00 11/13/17 16:00 11/13/17 17:00 Temperature 98.0 F Pulse Rate 73 71 82 Respiratory Rate 18 Blood Pressure 106/46 L Pulse Oximetry 96 11/13/17 18:00 11/13/17 19:00 11/13/17 20:00 Temperature 97.6 F Pulse Rate 76 74 76 Respiratory Rate 18 Blood Pressure 108/62 Pulse Oximetry 96 96 11/13/17 21:00 11/13/17 22:00 11/13/17 23:00 Temperature 99 F Pulse Rate 76 72 77 Respiratory Rate 14 Blood Pressure 103/49 L Pulse Oximetry 96 11/14/17 00:00 11/14/17 01:00 11/14/17 02:00 Temperature Pulse Rate 70 74 66 Respiratory Rate Blood Pressure Pulse Oximetry 11/14/17 03:00 11/14/17 04:00 11/14/17 05:00 Temperature 97.8 F Pulse Rate 81 72 72 Respiratory Rate 16 Blood Pressure 115/60 Pulse Oximetry 98 11/14/17 06:00 11/14/17 07:00 11/14/17 08:00 Temperature 98.2 F Pulse Rate 68 69 75 Respiratory Rate 18 Blood Pressure 104/55 L Pulse Oximetry 98 98 11/14/17 09:00 Temperature Pulse Rate 77 Respiratory Rate Blood Pressure Pulse Oximetry Intake & Output 11/13/17 11/14/17 11/14/17 18:59 06:59 18:59 Intake Total 1550 / 1550 240 / 240 Output Total 500 / 500 700 / 700 Balance 1050 / 1050 -460 / -460 Weight 84 kg Intake: IV 1000 / 1000 NS Inj 1,000 ML @ 30 mls/hr IV. 1000 / 1000 SIG .Q24H [facility] Rx#:[id number] Oral 550 / 550 240 / 240 Output: Urine 500 / 500 700 / 700 Other: Date of Last Bowel Movement 11/13/17 Results Procedures completed during hospitalization: Cardiac catheterization with drug-eluting stent placement. Please see report. - Impressions ITS Impressions Chest X-Ray 11/12/17 10:54 CONCLUSION: 1. [Except for some minimal lateral atelectasis or scarring in the left base, lungs are clear. 2. Heart size is normal. Discharge Plan - Discharge Disposition Patient Disposition: 01 Discharge Home - Discharge Condition Condition: Good - Discharge Order Discharge Orders: Discharge Order (Routine); Ordered 11/14/17 Ordered By: Yovani Klein - Discharge Details Anticipated Discharge Date: 11/14/17 Discharge Comment: Home when cleared by cardiology. - Physicians Team Primary Care Provider: Rafaela Page Attending Provider: Yovani Klein Other Providers: Amadeo Rivero DO ; Rahul Pedraza MD
[2017-11-14 11:30] VITALS: RESP 16
--- NOTE | 2017-11-14 14:27 | P.PNCA ---
Subjective Interval history: No event overnight Up and ambulating Physical Exam Vital signs: Vital Signs 11/13/17 15:00 11/13/17 16:00 11/13/17 17:00 Temperature 98.0 F Pulse Rate 73 71 82 Respiratory Rate 18 Blood Pressure 106/46 L Pulse Oximetry 96 11/13/17 18:00 11/13/17 19:00 11/13/17 20:00 Temperature 97.6 F Pulse Rate 76 74 76 Respiratory Rate 18 Blood Pressure 108/62 Pulse Oximetry 96 96 11/13/17 21:00 11/13/17 22:00 11/13/17 23:00 Temperature 99 F Pulse Rate 76 72 77 Respiratory Rate 14 Blood Pressure 103/49 L Pulse Oximetry 96 11/14/17 00:00 11/14/17 01:00 11/14/17 02:00 Temperature Pulse Rate 70 74 66 Respiratory Rate Blood Pressure Pulse Oximetry 11/14/17 03:00 11/14/17 04:00 11/14/17 05:00 Temperature 97.8 F Pulse Rate 81 72 72 Respiratory Rate 16 Blood Pressure 115/60 Pulse Oximetry 98 11/14/17 06:00 11/14/17 07:00 11/14/17 08:00 Temperature 98.2 F Pulse Rate 68 69 75 Respiratory Rate 18 Blood Pressure 104/55 L Pulse Oximetry 98 98 11/14/17 09:00 11/14/17 10:00 11/14/17 11:00 Temperature 97.6 F Pulse Rate 77 72 82 Respiratory Rate 16 Blood Pressure 113/58 L Pulse Oximetry 98 11/14/17 11:31 11/14/17 12:00 11/14/17 13:00 Temperature Pulse Rate 68 75 Respiratory Rate Blood Pressure Pulse Oximetry 98 Intake & Output 11/13/17 11/14/17 11/14/17 18:59 06:59 18:59 Intake Total 1550 / 1550 240 / 240 Output Total 500 / 500 700 / 700 Balance 1050 / 1050 -460 / -460 Weight 84 kg Intake: IV 1000 / 1000 NS Inj 1,000 ML @ 30 mls/hr IV. 1000 / 1000 SIG .Q24H [facility] Rx#:[id number] Oral 550 / 550 240 / 240 Output: Urine 500 / 500 700 / 700 Other: Date of Last Bowel Movement 11/13/17 11/13/17 Narrative: GENERAL: Patient sitting up in bed. Appears comfortable. Alert and oriented 3. SKIN: Warm and dry. HEAD: Normocephalic. EYES: No scleral icterus. No injection or drainage. NECK: Supple, trachea midline. No JVD. CARDIOVASCULAR: Regular rate and rhythm without murmurs, gallops, or rubs. RESPIRATORY: Breath sounds equal bilaterally. No accessory muscle use. GASTROINTESTINAL: Abdomen soft, non-tender, nondistended. MUSCULOSKELETAL: No cyanosis, or edema. BACK: Nontender without obvious deformity. No CVA tenderness. Assessment and Plan - Assessment (1) CAD (coronary artery disease) Code(s): I25.10 - Atherosclerotic heart disease of [place] coronary artery without angina pectoris Status: Acute (2) HTN (hypertension) Code(s): I10 - Essential (primary) hypertension Status: Acute (3) ST elevation myocardial infarction (STEMI) Code(s): I21.3 - ST elevation (STEMI) myocardial infarction of unspecified site Status: Acute - Plan 1) CAD/STEMI alert s/p ELVIS to LAD ASA/Brilinta/BB/Statin/Losartan 2) HTN Stable Hold Norvasc and HCTZ 3) 2D echo pending 4) Cardiovascularly stable for discharge once echo is read Will follow up with me in the office (3) ST elevation myocardial infarction (STEMI) Qualifiers: Involved coronary artery: LAD coronary artery Qualified Code(s): I21.02 - ST elevation (STEMI) myocardial infarction involving left anterior descending coronary artery
[2017-11-14 15:38] VITALS: BP 129/59; TEMP 97.9
--- NOTE | 2017-11-14 17:12 | ECHRPT ---
Indication: CORONARY ATHEROSCLEROSIS CONCLUSIONS Normal left ventricular size. Mild concentric left ventricular hypertrophy. The left ventricular systolic function is mildly decreased with an estimated ejection fraction of 4 5%. Distal anteroseptal and apical hypokinesis. Moderate mitral annular calcification. Moderate mitral valve regurgitation. Aortic valve sclerosis is present. Mild aortic valve regurgitation. There is mild tricuspid valve regurgitation. The estimated pulmonary arterial pressure is 45 mmHg. BP: / HR: Rhythm: Sinus MEASUREMENTS (Male / Female) Normal Values Technical Quality:Fair 2D ECHO LV Diastolic Diameter PLAX 4.0 cm 4.2 - 5.9 / 3.9 - 5.3 cm LV Systolic Diameter PLAX 2.9 cm IVS Diastolic Thickness 1.2 cm 0.6 - 1.0 / 0.6 - 0.9 cm LVPW Diastolic Thickness 1.2 cm 0.6 - 1.0 / 0.6 - 0.9 cm LV Relative Wall Thickness 0.6 RV Internal Dim ED PLAX 2.3 cm LVOT Diameter 1.9 cm Aortic Root Diameter 3.0 cm LA Systolic Diameter LX 3.4 cm 3.0 - 4.0 / 2.7 - 3.8 cm M-MODE AV Cusp Separation MM 1.7 cm DOPPLER AV Peak Velocity 161.0 cm/s AV Peak Gradient 10.4 mmHg AV Mean Gradient 6.0 mmHg AV Velocity Time Integral 31.4 cm LVOT Peak Velocity 87.2 cm/s LVOT Peak Gradient 3.0 mmHg LVOT Velocity Time Integral 19.3 cm AV Area Cont Eq vti 1.7 cm AV Area Cont Eq pk 1.5 cm Mitral E Point Velocity 94.8 cm/s Mitral A Point Velocity 107.0 cm/s Mitral E to A Ratio 0.9 LV E' Lateral Velocity 8.6 cm/s Mitral E to LV E' Lateral Ratio 11.0 LV E' Septal Velocity 7.9 cm/s Mitral E to LV E' Septal Ratio 12.0 TR Peak Velocity 297.0 cm/s TR Peak Gradient 35.3 mmHg Right Atrial Pressure 10.0 mmHg Pulmonary Artery Systolic Pressu 45.3 mmHg Right Ventricular Systolic Press 45.3 mmHg PV Peak Velocity 68.4 cm/s PV Peak Gradient 1.9 mmHg FINDINGS LEFT VENTRICLE Normal left ventricular size. Mild concentric left ventricular hypertrophy. Left ventricular systolic function is mildly decreased with an estimated ejection fraction of 45%. Distal aneroseptal and apical hypokinesis. RIGHT VENTRICLE Normal right ventricular size and systolic function. LEFT ATRIUM The left atrial size is normal. RIGHT ATRIUM The right atrial size is normal. ATRIAL SEPTUM No atrial level shunt is demonstrated by color flow Doppler interrogation. AORTA The aortic root and proximal ascending aorta are not well visualized. MITRAL VALVE Moderate mitral annular calcification. Moderate mitral valve regurgitation. AORTIC VALVE Aortic valve sclerosis is present. Mild aortic valve regurgitation. TRICUSPID VALVE There is mild tricuspid valve regurgitation. The estimated pulmonary arterial pressure is 45.3 mmHg. PULMONARY VALVE No pulmonary valve regurgitation or stenosis. VESSELS The inferior vena cava is normal in size. PERICARDIUM No pericardial effusion. Tawana Dueñas MD, FACC (Electronically Signed) Final Date:14 November 2017 17:11
[2017-11-14 18:26] VITALS: PULSE 82
== END 2017-11-14 18:20 | disposition home or self-care (01) ==
LOC: PHED 10:21 → PHEDA 11:13 → HCIS 12:54
PROVIDERS: ADMIT Internal Medicine; ATTEND Internal Medicine